=== PATIENT | male | born 2000 | race Two or more races ===

== ENCOUNTER 2021-10-13 01:17 | Emergency (ER) | payer OTHER ==
[~2021-10-13] VITALS: Ht 180.3 cm; Wt 90.7 kg
[2021-10-13 01:21] VITALS: BP 130/82
[2021-10-13] MEDS ORDERED: diphenhdrAMINE HCL 25 MG CAP PO ONE (01:30)
[2021-10-13] MEDS ORDERED: predniSONE 20 MG TAB PO ONE (01:30)
== END 2021-10-13 04:41 | disposition left against medical advice (07) ==
LOC: ER 01:17
DX: T78.40XA Allergy, unspecified, initial encounter (principal); Z53.21 Procedure and treatment not carried out due to patient leaving prior to being seen by health care provider; Y92.89 Other specified places as the place of occurrence of the external cause